=== PATIENT | male | born 2000 | race Caucasian/White ===

== ENCOUNTER 2025-01-02 14:58 | Outpatient (CLI) | payer OTHER, SELFPAY ==
--- NOTE | ~2025-01-02 | XR_ITS ---
XR hand LT min 3V 01/02/2025 15:15 Indication: Left hand pain Procedure: 3 views left hand Comparison: No prior studies for comparison. Findings: No fracture, subluxation or dislocation. No significant soft tissue abnormality. No foreign bodies. Impression: 1: No significant bone or joint abnormality. Reviewed, dictated and finalized at location B. Impression: 1: No significant bone or joint abnormality.
--- NOTE | ~2025-01-02 | XR_ITS ---
XR hand RT min 3V 01/02/2025 15:15 Indication: Right hand pain Procedure: 3 views right hand Comparison: No prior studies for comparison. Findings: No acute fracture, subluxation or dislocation. No significant soft tissue abnormality. No f oreign bodies. Impression: 1: No acute bone or joint abnormality. Reviewed, dictated and finalized at location B. Impression: 1: No acute bone or joint abnormality.
== END 2025-01-02 14:59 | disposition home or self-care (01) ==
LOC: MICIMG 15:01
PROVIDERS: PCP Family Medicine; Visit Provider Nurse Practitioner Family
DX: M25.542 Pain in joints of left hand (principal); M25.541 Pain in joints of right hand
CPT/HCPCS: 73130